=== PATIENT | female | born 1970 | race Caucasian/White ===

== ENCOUNTER → 2022-06-21 | Emergency (ER) | payer SELFPAY ==
[~2022-06-21] VITALS: Ht 157.5 cm; Wt 57.7 kg
[~2022-06-21] MED LIST: CYCL-1 PO; DICL100G30 TOP; HYDROcodone/acetaminophen 10/325mg tab PO ONE; MELO-102 PO; ketorolac trometh inj. 60 MG/2 ML VIAL IM ONE; ketorolac trometh. 30mg/ml inj. IM ONE
[2022-06-21 14:06] VITALS: BP 130/73
== END | disposition home or self-care (01) ==
LOC: ER 13:58
DX: M54.31 Sciatica, right side (principal); R07.89 Other chest pain; Z56.0 Unemployment, unspecified; Z91.013 Allergy to seafood
CPT/HCPCS: 73502; 96372; 99283; J1885